=== PATIENT | female | born 1955 | race Two or more races ===

== ENCOUNTER 2022-04-09 06:45 | Day surgery (SDC) | payer MEDICARE ==
[~2022-04-09] VITALS: Ht 152.4 cm; Wt 49.5 kg
[~2022-04-09 06:45] MED LIST: LEVSOD100 PO; LEVSOD150 PO; LISI5 PO; LORA10ER PO; MONT10T PO; NAPR220 PO
== END 2022-04-09 08:58 | disposition home or self-care (01) ==
LOC: ORSCSDS 06:45
PROVIDERS: Student in an Organized Health Care Education/Training Program
PROC: 0DBK8ZX Excision of Ascending Colon, Via Natural or Artificial Opening Endoscopic, Diagnostic (ICD-10-PCS; principal; 2022-04-09 08:00)
PROC: 0DBL8ZX Excision of Transverse Colon, Via Natural or Artificial Opening Endoscopic, Diagnostic (ICD-10-PCS; principal; 2022-04-09 08:00)
DX: Z12.11 Encounter for screening for malignant neoplasm of colon (principal); D12.2 Benign neoplasm of ascending colon; D12.3 Benign neoplasm of transverse colon; E03.9 Hypothyroidism, unspecified; K64.8 Other hemorrhoids; K64.4 Residual hemorrhoidal skin tags; Q43.8 Other specified congenital malformations of intestine; Z79.899 Other long term (current) drug therapy
CPT/HCPCS: 88305; J2704; J7120